=== PATIENT | female | born 1995 | race Caucasian/White ===

== ENCOUNTER 2023-02-19 20:05 | Emergency (ER) | payer OTHER, SELFPAY ==
[2023-02-19 20:08] VITALS: BP 121/85; PULSE 96; RESP 18; TEMP 36.8; O2SAT 98
--- NOTE | 2023-02-19 20:10 | ECG_ITS ---
Measurements Intervals [place] Rate: 97 P: 58 [place]: 170 QRS: 62 QRSD: 81 T: 29 QT: 367 QTc: 467 Interpretive Statements SINUS RHYTHM NORMAL ECG NO PREVIOUS ECG AVAILABLE FOR COMPARISON Electronically Signed On 02-20-2023 8:55:14 CDT by James Salas M.D.
[2023-02-19] MEDS: SODIUM CHLORIDE 0.9% IV 1,000 ML 999 ML IV CONT ×2 (20:22→21:05)
[2023-02-19] MEDS: ONDANSETRON INJ 4 MG/2 ML VIAL IV PUSH (20:22)
[2023-02-19 21:11] LABS: Alanine Aminotransferase 21 U/L (14-59); Albumin Level 3.5 g/dL (3.4-5.0); Alkaline Phosphatase 61 U/L (46-116); Anion Gap 15 mmol/L (8-16); Aspartate Amino Transferase 12 U/L (15-37); Bilirubin,Total 0.2 mg/dL (0.00-1.00); Blood Urea Nitrogen 8 mg/dL (7-18); Carbon Dioxide 24 mmol/L (21-32); Chloride 108 mmol/L (98-108); Creatine Kinase 33 U/L (26-192); Estimated CRCL calculation 122 ml/min; Estimated Glomerular Filt Rate > 60; Glucose 119 mg/dL (70-99); Osmolality Calculated 303 mOsm/kg (285-295); Potassium 3.6 mmol/L (3.5-5.1); Sodium 147 mmol/L (136-145); Total Protein 6.2 g/dL (6.4-8.2)
[2023-02-19 21:14] LABS: Ethanol 212 mg/dL (0-6)
--- NOTE | 2023-02-19 21:21 | ED.NAVMDI ---
HPI - Nausea/Vomiting/Diarrhea General Chief complaint: Nausea/Vomiting/Diarrhea Stated complaint: Drunk Time Seen by Provider: 02/19/23 20:10 Source: patient and family Mode of arrival: wheelchair Limitations: physical limitation and intoxication History of Present Illness HPI Narrative: this is 27-year-old female with no significant past medical history brought in by family with acute intoxication has been throwing up, and was brought in by family via wheelchair the patient was crying and intoxicated. With no fever chills no diarrhea no abdominal pain. MD elicited complaint: nausea and vomiting Onset (ago): hour(s) Description of vomiting: food contents Associated nausea: Yes Associated abdominal pain: No Related Data Allergies Allergy/AdvReac Type Severity Reaction Status Date / Time gluten Allergy Other Verified 02/19/23 20:08 Review of Systems Review of Systems: All systems reviewed & are unremarkable except as noted in HPI and below PMFSH Past Medical History Medical History Patient denies medical problems Exam Const: General: healthy appearing and no acute distress Nutritional Appearance: well nourished Limitations: no limitations HENMT: Head: normal to inspection Eyes: Conjunctivae: conjunctivae normal Pupils: Equal, round and reactive pupils present Neck: Neck: normal visual inspection and no lymphadenopathy Chest: Chest palpation & inspection: normal inspection of the chest Resp: Effort & Inspection: normal respiratory effort Auscultation: clear to auscultation bilaterally Cardio: Rate: regular rate Rhythm: regular rhythm GI: GI Palp: Yes Soft to palpation Skin: General skin exam: normal color Rashes: no rashes Wounds: no wounds Neuro: General: patient oriented x3 and moves all extremities Cranial nerves: Yes Nystagmus not present Extrem: General: normal to inspection and no clubbing, cyanosis or edema Psych: Mental Status: mental status grossly normal Course Course Emergency Course: patient presented with acute intoxication with an alcohol level of 212 with nausea and vomiting, the patient received 2L of normal saline has some is more awake and alert and responding appropriately, patient also received Zofran, and lab work reviewed with patient and family. Vital Signs Vital signs: Vital Signs Temperature 36.8 C 02/19/23 20:08 Pulse Rate 96 02/19/23 20:08 Respiratory Rate 18 02/19/23 20:08 Blood Pressure 121/85 02/19/23 20:08 Pulse Oximetry 98 02/19/23 20:08 Oxygen Delivery Room Air 02/19/23 20:08 Temperature 36.8 C 02/19/23 20:08 Pulse Rate 96 02/19/23 20:08 Respiratory Rate 18 02/19/23 20:08 Blood Pressure 121/85 02/19/23 20:08 Pulse Oximetry 98 02/19/23 20:08 Oxygen Delivery Room Air 02/19/23 20:08 MDM - Nausea/Vomiting/Diarrhea Lab Data 02/19/23 20:45 02/19/23 20:45 Labs: Lab Results 02/19/23 Range/Units 20:45 WBC Cancelled RBC Cancelled Hgb Cancelled Hct Cancelled MCV Cancelled MCH Cancelled MCHC Cancelled RDW Cancelled Plt Count Cancelled MPV Cancelled Immature Gran % (Auto) Cancelled Neut % (Auto) Cancelled Lymph % (Auto) Cancelled Andrews % (Auto) Cancelled Eos % (Auto) Cancelled Baso % (Auto) Cancelled Lymph # (Auto) Cancelled Andrews # (Auto) Cancelled Eos # (Auto) Cancelled Baso # (Auto) Cancelled Abs Immat Gran (auto) Cancelled Absolute Neuts (auto) Cancelled Absolute Nucleated RBC Cancelled Nucleated RBC % Cancelled % Immature Plt Fraction Cancelled Sodium 147 H (136-145) mmol/L Potassium 3.6 (3.5-5.1) mmol/L Chloride 108 (98-108) mmol/L Carbon Dioxide 24 (21-32) mmol/L Anion Gap 15 (8-16) mmol/L BUN 8 (7-18) mg/dL Creatinine 0.51 L (0.55-1.02) mg/dL Estim Creat Clear Calc 122 ml/min Estimated GFR > 60 (59 - )
[2023-02-19] MEDS: ONDANSETRON HCL ODT 4 MG TABLET PO (21:34)
[2023-02-19 21:47] VITALS: BP 111/83; PULSE 82; RESP 18; TEMP 36.7; O2SAT 98
== END 2023-02-19 21:49 | disposition home or self-care (01) ==
PROVIDERS: Emergency Provider Emergency Medicine
DX: F10.120 Alcohol abuse with intoxication, uncomplicated (principal); R11.2 Nausea with vomiting, unspecified; Y90.7 Blood alcohol level of 200-239 mg/100 ml
CPT/HCPCS: 36415; 80053; 80307; 82550; 93005; 96361; 96374; 99284; A9270; J2405; J7030